=== PATIENT | male | born 1965 | race Caucasian/White ===

== ENCOUNTER 2024-12-16 09:21 | Inpatient (IN) | payer OTHER ==
[~2024-12-16] VITALS: Ht 177.8 cm; Wt 101.2 kg
[2024-12-16 09:07] VITALS: BP 145/78
[2024-12-16 09:09] LABS: BASO % 1.1 % (0.1-1.2); EOS # 0.26 (0.04-0.54); EOS % 3.6 % (0.7-7.0); LYMPH # 2.27 (1.18-3.74); LYMPH % 31.1 % (19.3-53.1); MEAN PLATELET VOLUME 10.70 fl (9.4-12.4); MONO # 0.75 (0.24-0.82); MONO % 10.3 % (4.7-12.5); NEUT # 3.94 (1.56-6.13); NEUT % 53.8 % (34.0-71.1); RED CELL DISTRIBUTION WIDTH 12.6 % (11.6-14.4)
[2024-12-16 09:21] LABS: URINE APPEARANCE Clear; URINE BILIRRUBIN Negative (NEGATIVE); URINE BLOOD Negative; URINE COLOR Yellow; URINE GLUCOSE Negative (NEGATIVE); URINE KETONE Negative (NEGATIVE); URINE LEUKOCYTE Negative; URINE NITRATE Negative; URINE PROTEIN Negative (NEGATIVE); URINE UROBILINOGEN 1.0 E.U./dl
[~2024-12-16 09:21] MED LIST: ATACAND32 MG PO; CRESTOR40 MG
[2024-12-16 09:22] LABS: URINE BACTERIA 21.5 uL (0.0-1933); URINE RBC 6.1 uL (0.0-20.8)
[2024-12-16 09:27] LABS: COVID-19 AG NEGATIVE (NEGATIVE)
[2024-12-16 09:29] LABS: URINE CAST 0.00 uL (0.0-1.40); URINE EPITHELIAL CELLS 1.3 uL (0.0-38.8); URINE WBC 0.7 uL (0.0-23.2)
[2024-12-16 09:31] LABS: INR 1.0
[2024-12-16 10:22] LABS: BUN CREA RATIO 15.0 (7.0-25.0); CREATININE SERUM 0.84 mg/dL (0.70-1.30); GFR 94.18; GLUCOSE FASTING 99.0 mg/dL (65-100); OSMOLALITY SERUM 280.0 MOSM/KG (275-295)
[2024-12-16 11:42] LABS: RH POSITIVE
[2024-12-31] MEDS ORDERED: ENOXAPARIN SODIUM 40 MG/0.4 ML SYRINGE SUBCUTANEO ONE (06:06)
[2024-12-31] MEDS ORDERED: CEFAZOLIN SODIUM 1,000 MG VIAL ONE (06:06)
[2024-12-31] MEDS ORDERED: SUGAMMADEX SODIUM 200 MG/2 ML VIAL IV ONE (11:54)
[2024-12-31] MEDS ORDERED: DEXTROSE 5 %-0.45 % SOD CHLORD 1,000 ML IV SCH (12:36)
[2024-12-31] MEDS ORDERED: MORPHINE SULFATE 4 MG/ML VIAL IV ONE ×2 (12:45→13:45)
[2024-12-31] MEDS ORDERED: ONDANSETRON HCL 2 MG/ML VIAL IV PRN (12:45)
[2024-12-31] MEDS ORDERED: MORPHINE SULFATE 2 MG/ML CARTRIDGE IV PRN (12:45)
[2024-12-31] MEDS ORDERED: hydrALAZINE HCL 20 MG VIAL IV PRN (14:45)
[2024-12-31 16:34] VITALS: BP 150/74; O2SAT 96
[2024-12-31] MEDS ORDERED: DOCUSATE SODIUM 100MG CAP PO SCH (17:00)
[2024-12-31] MEDS ORDERED: CEFAZOLIN SODIUM 1,000 MG VIAL IV SCH (17:00)
[2024-12-31] MEDS ORDERED: SIMETHICONE 125 MG CAPSULE PO SCH (17:00)
[2024-12-31] MEDS ORDERED: CYCLOBENZAPRINE HCL 5 MG TABLET PO SCH (20:45)
[2024-12-31] MEDS ORDERED: CYCLOBENZAPRINE HCL 5 MG TABLET PO ONE (21:30)
[2025-01-01 00:14] VITALS: BP 133/68; O2SAT 100
[2025-01-01 08:00] VITALS: BP 130/74; O2SAT 95
[2025-01-01 08:41] LABS: BUN CREA RATIO 11.0 (7.0-25.0); CREATININE SERUM 0.82 mg/dL (0.70-1.30); GFR 96.84; GLUCOSE FASTING 115.0 mg/dL (65-100); OSMOLALITY SERUM 279.0 MOSM/KG (275-295)
[2025-01-01] MEDS ORDERED: CANDESARTAN CILEXETIL 32 MG TABLET PO SCH (09:00)
[2025-01-01] MEDS ORDERED: ENOXAPARIN SODIUM 40 MG/0.4 ML SYRINGE SUBCUTANEO SCH (09:00)
[2025-01-01 12:51] LABS: BASO % 0.2 % (0.1-1.2); EOS # 0.03 (0.04-0.54); EOS % 0.2 % (0.7-7.0); LYMPH # 1.24 (1.18-3.74); LYMPH % 10.2 % (19.3-53.1); MEAN PLATELET VOLUME 10.70 fl (9.4-12.4); MONO # 1.28 (0.24-0.82); MONO % 10.5 % (4.7-12.5); NEUT # 9.54 (1.56-6.13); NEUT % 78.5 % (34.0-71.1); RED CELL DISTRIBUTION WIDTH 12.4 % (11.6-14.4)
[2025-01-01 16:00] VITALS: BP 114/70; O2SAT 95
[2025-01-02 01:08] VITALS: BP 123/70; O2SAT 100
== END 2025-01-02 13:50 | disposition home or self-care (01) | DRG 708 ==
LOC: SURG 12-31 05:17 → O/R 12-31 05:17 → SURH 12-31 07:00 → SURG 12-31 15:15
PROVIDERS: ADMIT Urology; ATTEND Urology
PROC: 07BC0ZZ Excision of Pelvis Lymphatic, Open Approach (ICD-10-PCS; 2024-12-31)
PROC: 0VT00ZZ Resection of Prostate, Open Approach (ICD-10-PCS; principal; 2024-12-31 07:00)
DX: C61 Malignant neoplasm of prostate (principal); R59.0 Localized enlarged lymph nodes